=== PATIENT | male | born 2005 | race Asian ===

== ENCOUNTER 2023-08-26 06:22 | Emergency (ER) | payer OTHER ==
[~2023-08-26] VITALS: Ht 165.1 cm; Wt 63.4 kg
[2023-08-26 07:51] LABS: RSV AMPLIFICATION NEGATIVE (NEGATIVE)
[2023-08-26] MEDS ORDERED: ONDA4TAB6 PO (08:29)
[2023-08-26 08:58] VITALS: BP 133/66; TEMP 99.6; O2SAT 100
== END 2023-08-26 08:59 | disposition home or self-care (01) ==
LOC: M ED 06:22
DX: B34.9 Viral infection, unspecified (principal); Z79.899 Other long term (current) drug therapy